=== PATIENT | male | born 1950 | race Caucasian/White ===

== ENCOUNTER → 2018-09-07 15:16 | Outpatient (CLI) | payer MEDICARE, SELFPAY ==
--- NOTE | 2018-09-07 | DI.MRI.S_ITS ---
PROCEDURE: MR HEAD/BRAIN WO/W CON INDICATIONS: Sudden idiopathic hearing loss, unspecified ear TECHNIQUE: Noncontrast axial T1 spin echo, axial T2 fast spin echo, sagittal and axial FLAIR, coronal T2 fast spin echo, axial gradient echo, axial diffusion and ADC through the brain. After the administration of contrast, axial and coronal T1 spin echo with fat saturation through the brain. COMPARISON: None. FINDINGS: Image quality: Excellent. CSF spaces: Basal cisterns are patent. No extra-axial fluid collections. Ventricles are normal in size and shape. Brain: In this patient with this given history, scrutiny is given to internal auditory canals. To the limits of this standard protocol study, no masses can be seen involving the internal auditory canals or the cerebellopontine angle cisterns. No midline shift. No intracranial bleeds or masses. No abnormal intracranial enhancement. There is cerebral volume loss for age. There is periventricular white matter chronic small vessel ischemic change. The brainstem appears normal. Diffusion-weighted images demonstrate no acute ischemic insults. No chronic ischemic insults. Normal intravascular flow voids are present. Skull and face: Calvarial marrow is normal in signal. Orbits appear normal. Sinuses: There is a mucous retention cyst is seen along the inferior aspect of right maxillary sinus. Mucosal thickening can be seen involving the left frontal sinus. Milder mucosal thickening is seen elsewhere within the period spasms. No abnormal mastoid air cell fluid can be seen. IMPRESSION: No imaging explanation is found for this patient's presenting symptoms. Dictated by: Vinicio Sol M.D. on 09/07/2018 at 16:24 Approved by: Vinicio Sol M.D. on 09/07/2018 at 16:26
== END ==
PROVIDERS: PCP Family Medicine; Visit Provider Family Medicine
DX: H91.20 Sudden idiopathic hearing loss, unspecified ear (principal)
CPT/HCPCS: 70553; A9579

== ENCOUNTER → 2019-02-14 08:54 | Outpatient (CLI) | payer MEDICARE, SELFPAY ==
--- NOTE | 2019-02-14 | DI.RAD.S_ITS ---
PROCEDURE: XR HAND LT MIN 3V INDICATIONS: wrist/hand pain TECHNIQUE: 3 views of the hand(s) acquired. COMPARISON: [facility], CR, XR WRIST LT MIN 3V, 02/14/2019, 8:58. FINDINGS: Bones: No fractures or dislocations but there is moderately severe degeneration at the base of the first metacarpal, with a small degree of subluxation radially at that articulation. Carpal bones are normally aligned. No suspicious bony lesions. Soft tissues: No suspicious soft tissue calcifications. 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 No trauma seen. No erosive arthritis found. Dictated by: Stanton Christy M.D. on 02/14/2019 at 11:34 Approved by: Stanton Christy M.D. on 02/14/2019 at 11:39
--- NOTE | 2019-02-14 | DI.RAD.S_ITS ---
PROCEDURE: XR WRIST LT MIN 3V INDICATIONS: wrist/hand pain TECHNIQUE: 3 views of the wrist were acquired. COMPARISON: [facility], CR, XR HAND LT MIN 3V, 02/14/2019, 8:58. FINDINGS: Bones: No fractures or dislocation but there is degenerative osteoarthritis at the base of the first metacarpal as it articulates against the trapezium, which is moderately severe to severe, with associated mild radial subluxation of the base of the first metacarpal across the distal trapezium articular surface. s. No suspicious bony lesions. Scaphoid view: The not obtained but the scaphoid visualized shows no trauma and a moderate degree of distal degenerative change. Soft tissues: No suspicious soft tissue calcifications. IMPRESSION: Degenerative changes along the radial aspect of the wrist, most pronounced at the first carpal-metacarpal articulation where degeneration is moderately severe. Dictated by: Stanton Christy M.D. on 02/14/2019 at 11:32 Approved by: Stanton Christy M.D. on 02/14/2019 at 11:33
--- NOTE | 2019-02-14 | DI.RAD.S_ITS ---
PROCEDURE: XR WRIST RT MIN 3V INDICATIONS: wrist/hand pain TECHNIQUE: 3 views of the wrist were acquired. COMPARISON: [facility], CR, XR WRIST LT MIN 3V, 02/14/2019, 8:58. FINDINGS: Bones: No fractures or dislocations. No suspicious bony lesions. Scaphoid view: Not obtained of the scaphoid visualizatio is only a mild degree of degeneration and no trauma. The degeneration is present at the interface between the distal scaphoid and base of the trapezium. Soft tissues: No suspicious soft tissue calcifications. IMPRESSION: Mild degenerative osteoarthritis at the radial aspect of the wrist involving the base of the first metacarpal and the scaphoid-trapezium articulation. The involvement on the right is appreciably less than that seen at the left wrist. Dictated by: Stanton Christy M.D. on 02/14/2019 at 11:42 Approved by: Stanton Christy M.D. on 02/14/2019 at 11:43
--- NOTE | 2019-02-14 | DI.RAD.S_ITS ---
PROCEDURE: XR HAND RT MIN 3V INDICATIONS: wrist/hand pain TECHNIQUE: 3 views of the hand(s) acquired. COMPARISON: [facility], CR, XR HAND LT MIN 3V, 02/14/2019, 8:58. [facility], CR, XR WRIST RT MIN 3V, 02/14/2019, 8:58. FINDINGS: Bones: No fractures or dislocations. There is mild degenerative osteoarthritis at the base of the first metacarpal, appreciably less involved by degenerative change than on the left. Carpal bones are normally aligned. No suspicious bony lesions. Soft tissues: No suspicious soft tissue calcifications. IMPRESSION: No trauma found. Only mild degenerative osteoarthritic change is identified at the base of the first metacarpal, and at the distal interphalangeal joints of the right hand. The degree of involvement is appreciably less than on the left. Dictated by: Stanton Christy M.D. on 02/14/2019 at 11:39 Approved by: Stanton Christy M.D. on 02/14/2019 at 11:42
== END ==
PROVIDERS: PCP Family Medicine; Visit Provider Family Medicine
DX: M25.532 Pain in left wrist (principal); M25.531 Pain in right wrist; M79.645 Pain in left finger(s); M79.644 Pain in right finger(s); M19.042 Primary osteoarthritis, left hand; M19.041 Primary osteoarthritis, right hand; M19.032 Primary osteoarthritis, left wrist; M19.031 Primary osteoarthritis, right wrist; G89.29 Other chronic pain
CPT/HCPCS: 73110; 73130

== ENCOUNTER → 2020-07-03 10:28 | Outpatient (CLI) | payer MEDICARE, SELFPAY ==
[2020-07-05 05:37] LABS: PSA Ultrasensitive <0.014 ng/mL (0.000-4.000)
== END ==
PROVIDERS: PCP Family Medicine; Visit Provider Nurse Practitioner Family
DX: C61 Malignant neoplasm of prostate (principal)
CPT/HCPCS: 84153

== ENCOUNTER → 2020-11-28 08:02 | Outpatient (CLI) | payer MEDICARE, SELFPAY ==
--- NOTE | 2020-11-28 08:06 | DI.CT.S_ITS ---
PROCEDURE: CT ABDOMEN PELVIS W CON INDICATIONS: Unilateral inguinal hernia, without obstruction or TECHNIQUE: After the administration of oral and IV contrast, axial sections were acquired from the lung bases to the pubic symphysis. Coronal and sagittal reformats were performed. For radiation dose reduction, the following was used: automated exposure control, adjustment of mA and/or kV according to patient size. COMPARISON: None. FINDINGS: Image quality: Excellent. Lung bases: Unremarkable. Heart: Cardiomegaly without pericardial effusion. ABDOMEN: Liver: Normal enhancement and contour. A 1.5 cm hypoattenuating lesion is seen in the left hepatic lobe, most consistent with a cyst. Gallbladder: Unremarkable. Biliary ducts: Unremarkable. Pancreas: Unremarkable. Spleen: Normal contour. 5.8 mm hypoattenuating lesion (2/15), which may reflect a cyst or hemangioma. Adrenal Glands: Unremarkable. Kidneys and Ureters: Symmetric enhancement without evidence of obstructive uropathy. 7.4 mm hypoattenuating lesion in the left upper pole, compatible with a cyst. Stomach and Bowel: Stomach, small bowel loops, and colon are unremarkable. Normal appendix. Sigmoid diverticulosis. Peritoneum: No abnormal intraperitoneal fluid. No free air. Ventral Wall: No hernia. Abdominal Nodes: No retroperitoneal or mesenteric adenopathy by size criteria. Vessels: Aorta and inferior vena cava are normal in size. PELVIS: Pelvic Organs: Unremarkable. Bladder: Unremarkable. Pelvic Nodes: No enlarged lymph nodes. Miscellaneous: Small amount of fluid is seen in the left inguinal hernia. Bones: Unremarkable. IMPRESSION: 1. No significant abnormality. 2. Small amount of fluid in the left inguinal hernia. Dictated by: Domingo Cai M.D. on 11/28/2020 at 10:13 Approved by: Domingo Cai M.D. on 11/28/2020 at 10:44
[2020-11-28 08:33] LABS: BUN Creatinine Ratio 16.3 (6-22); Blood Urea Nitrogen 14 mg/dL (9-20); Calcium 9.3 mg/dL (8.4-10.2); Carbon Dioxide 31 mmol/L (22-32); Chloride 103 mmol/L (98-107); Estimated Glomerular Filt Rate > 60.0 mL/min (>60); Glucose 90 mg/dL (80-110); HEMOLYSIS < 15 (0-50); Potassium 4.3 mmol/L (3.4-5.1); Sodium 138 mmol/L (137-145)
== END ==
PROVIDERS: PCP Family Medicine; Referring Provider Family Medicine; Visit Provider Family Medicine
DX: Z01.812 Encounter for preprocedural laboratory examination (principal); K40.90 Unilateral inguinal hernia, without obstruction or gangrene, not specified as recurrent; K57.30 Diverticulosis of large intestine without perforation or abscess without bleeding; I51.7 Cardiomegaly
CPT/HCPCS: 36415; 74177; 80048; Q9967

== ENCOUNTER → 2020-12-31 09:17 | Outpatient (CLI) | payer MEDICARE, SELFPAY ==
[2020-12-31 20:39] LABS: COVID19 - ORCAS (NP or Nasal) Negative (Negative)
== END ==
PROVIDERS: PCP Family Medicine; Visit Provider Family Medicine
DX: Z20.822 Contact with and (suspected) exposure to COVID-19 (principal)
CPT/HCPCS: C9803; U0003

== ENCOUNTER → 2021-03-28 11:58 | Outpatient (CLI) | payer MEDICARE, SELFPAY ==
--- NOTE | 2021-03-28 | DI.ECHO.S_ITS ---
[facility] +---------+ : : [address] : [place] : : : : [id number] : : : : Phone: [phone]+ Echocardiogram Report + + :Name: ETHAN FINLEY Study Date: 03/28/2021 Height: 69.5 in: :[facility] ReadingLocation: Weight: 165 lb : : Gender: Male BSA: 1.9 m2 : :: 1950 Age: 70 yrs BP: 140/85 mmHg: :Reason For Study: Cardiomegaly : :Ordering Physician: : :ROBERT Performed By: Mariano Cheema : :Referring: ALANNA DAWN : + + Interpretation Summary The ejection fraction is estimated to be 55-60%. Diastolic parameters suggest probable normal left ventricular diastolic function and normal filling pressures. The right ventricle is mildly dilated. The right ventricular systolic function is normal. The right atrium is moderately dilated. There is mild tricuspid regurgitation. PASP is approximately 25 to 30 mmHg. Procedure: A two-dimensional transthoracic echocardiogram with color flow and Doppler was performed. The study quality was technically adequate. Most of the acoustic windows were suboptimal, but the best imaging was obtained from the apical window. There is no prior echocardiogram noted for this patient. The patient was in sinus bradycardia with heart rates between 46 bpm during the exam. Left Ventricle: The left ventricle is normal in size and wall thickness. The ejection fraction is estimated to be 55-60%. Diastolic parameters suggest probable normal left ventricular diastolic function and normal filling pressures. Right Ventricle: The right ventricle is mildly dilated. The right ventricular systolic function is normal. Atria: The left atrial size is normal. The right atrium is moderately dilated. There is no Doppler evidence for an interatrial shunt. Mitral Valve: The mitral valve is normal. There is trace mitral regurgitation. Aortic Valve: The aortic valve is trileaflet. The aortic valve opens well. There is no aortic valve stenosis. There is trace aortic regurgitation. Tricuspid Valve: The tricuspid valve is normal. There is mild tricuspid regurgitation. PASP is approximately 25 to 30 mmHg. Pulmonic Valve: The pulmonic valve leaflets are thin and pliable; valve motion is normal. There is a trace or physiologic amount of pulmonic regurgitation. Great Vessels: The aortic root is normal size. The ascending aorta is at the upper limits of normal in size. The aortic arch is normal in size. The IVC is of normal diameter and collapses greater than 50% with a sniff. This suggests a low right atrial pressure of 3 mm Hg. Pericardium/ Pleura There is no pericardial effusion. There is an anterior echo-free space consistent with a fat pad. There is no pleural effusion. MMode/2D Measurements & Calculations LVIDd: 4.6 cm LVOT diam: 2.0 cm LVIDs: 2.4 cm Ao root diam: 3.6 cm FS: 47.8 % asc Aorta Diam: 3.8 cm IVSd: 0.80 cm Ao Arch Diam (Prox Trans): 2.5 cm LVPWd: 0.90 cm LV mcgee. diameter/BSA (cm/m^2): 2.4 LV sys. diameter/BSA (cm/m^2): 1.3 LA A2 area: 23.1 cm2 RA long axis: 6.5 cm LA A4 area: 17.9 cm2 LA length (vol): 6.7 cm LA vol: 52.3 ml LA vol index: 27.3 ml/m2 TAPSE_phl: 2.3 cm Doppler Measurements & Calculations Ao V2 max: 102.0 cm/sec LVOT Max Jim: 103.0 cm/sec Ao V2 mean: 76.5 cm/sec LV V1 max P.2 mmHg Ao max P.0 mmHg LV V1 VTI: 25.8 cm Ao mean P.0 mmHg ELIOT(I,D): 2.9 cm2 Ao V2 VTI: 28.2 cm ELIOT(V,D): 3.2 cm2 sev ratio: 0.91 ELIOT indexed to BSA (cm^2/m^2): 1.5 MV E max jim: 58.3 cm/sec TR max jim: 230.8 cm/sec MV A max jim: 33.4 cm/sec TR max P.3 mmHg MV E/A: 1.7 Med Peak E' Jim: 9.8 cm/sec E/E' med: 6.0 Lat Peak E' Jim: 13.2 cm/sec E/E' lat: 4.4 E/e' average: 5.2 MV dec time: 0.27 sec SV(LVOT): 81.1 ml AV VR_phl: 1.0 ELIOT(VTI)/BSA_phl: 1.5 MV P1/2t-pr_phl: 80.0 msec Reading Physician:04:54 PM
== END ==
PROVIDERS: PCP Family Medicine; Referring Provider Family Medicine; Visit Provider Family Medicine
DX: I07.1 Rheumatic tricuspid insufficiency (principal)
CPT/HCPCS: 93306

== ENCOUNTER → 2021-04-19 08:04 | Outpatient (CLI) | payer MEDICARE, SELFPAY ==
[2021-04-19 20:48] LABS: COVID19 - ORCAS (NP or Nasal) Negative (Negative)
== END ==
PROVIDERS: PCP Family Medicine; Visit Provider Physician Assistant Medical
DX: Z01.812 Encounter for preprocedural laboratory examination (principal)
CPT/HCPCS: C9803; U0003

== ENCOUNTER → 2024-05-15 10:47 | Outpatient (CLI) | payer MEDICARE, SELFPAY ==
--- NOTE | 2024-05-15 10:49 | DI.RAD.S_ITS ---
PROCEDURE: XR HIP W PEL IF DONE KATHY MIN 4V INDICATIONS: rt hip and buttock pain TECHNIQUE: AP pelvis with lateral view(s) of the both hip(s). COMPARISON: None. 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 No acute displaced fracture or dislocation. Moderate right calcific tendinopathy. Small markers project over the pelvis. If there is high concern for further derangement, consider MRI evaluation. Dictated by: Reji Moss M.D. on 05/15/2024 at 17:44 Approved by: Reji Moss M.D. on 05/15/2024 at 17:44
--- NOTE | 2024-05-15 10:49 | DI.RAD.S_ITS ---
PROCEDURE: XR LUMBAR SPINE 2-3V INDICATIONS: rt hip and buttock pain TECHNIQUE: 3 views of the lumbar spine were acquired. COMPARISON: None. FINDINGS AND IMPRESSION: Mild overall lumbar spondylosis with facet arthropathy, disc space height loss, and small osteophytes. No acute fracture. No traumatic subluxation. Vascular calcifications. If there is high concern for further derangement, consider MRI evaluation. Dictated by: Reji Moss M.D. on 05/15/2024 at 17:43 Approved by: Reji Moss M.D. on 05/15/2024 at 17:44
== END ==
PROVIDERS: PCP Family Medicine; Referring Provider Family Medicine; Visit Provider Family Medicine
DX: M47.816 Spondylosis without myelopathy or radiculopathy, lumbar region (principal); M54.10 Radiculopathy, site unspecified; M79.18 Myalgia, other site; M16.0 Bilateral primary osteoarthritis of hip; M25.551 Pain in right hip; M65.88 Other synovitis and tenosynovitis, other site
CPT/HCPCS: 72100; 73522

== ENCOUNTER → 2024-07-19 11:46 | Outpatient (CLI) | payer MEDICARE, SELFPAY ==
--- NOTE | 2024-07-19 11:47 | DI.US.S_ITS ---
PROCEDURE: US SCROTUM INDICATIONS: pain in left testicle TECHNIQUE: Real-time scanning was performed of the scrotum and testicles, with image documentation. Color and pulse Doppler interrogation was performed of both testicles. COMPARISON: None. FINDINGS: Right: Testicle is normal in size at 4.5 x 2.2 x 2.7 cm, and homogenous in echotexture. Epididymis is normal in overall size and morphology. Small hydrocele. No varicoceles. Overlying scrotal skin is normal in thickness. Left: Testicle is normal in size at 4.6 x 3.7 x 2.8 cm, and homogeneous in echotexture. Epididymis is normal in overall size and morphology. Small hydrocele. No varicoceles. Overlying scrotal skin is normal in thickness. Solid avascular lesion inferior to teste and medial to the epididymis measuring 1.1 x 1.1 x 0.9 cm. Doppler: Color and pulse Doppler demonstrate normal and symmetric arterial flow in both testicles. IMPRESSION: Solid avascular mass near the left teste/epididymis measuring up to 1.1 cm, correlating to the palpable area of concern. Etiology is uncertain. Recommend urology consultation. Dictated by: Rolando Solis M.D. on 07/19/2024 at 15:28 Approved by: Rolando Solis M.D. on 07/19/2024 at 15:31
== END ==
PROVIDERS: PCP Family Medicine; Referring Provider Family Medicine; Visit Provider Family Medicine
DX: N50.812 Left testicular pain (principal); N50.9 Disorder of male genital organs, unspecified; N43.3 Hydrocele, unspecified
CPT/HCPCS: 76870; 93975